=== PATIENT | male | born 1945 | race Caucasian/White ===

== ENCOUNTER 2022-06-30 11:38 | Outpatient (CLI) | payer MEDICARE, SELFPAY ==
[2022-06-30 13:41] LABS: Chloride* 101 mmol/L (96-114); Potassium* 4.6 mmol/L (3.6-5.1); Sodium* 138 mmol/L (135-149)
[2022-06-30 13:44] LABS: Carbon Dioxide* 31 mmol/L (20-32); Creatinine* 0.9 mg/dL (0.5-1.5); Estimated Glomerular Filt Rate 89 ml/min
[2022-06-30 13:45] LABS: Blood Urea Nitrogen* 19 mg/dL (7-30); Calcium* 9.4 mg/dL (8.4-10.6); Glucose* 91 mg/dL (60-115)
== END 2022-06-30 11:39 | disposition home or self-care (01) ==
LOC: LKVREF 11:40
PROVIDERS: Visit Provider Physician Assistant Medical
DX: R42 Dizziness and giddiness (principal)
CPT/HCPCS: 80048; 87086